=== PATIENT | male | born 1970 | race Caucasian/White ===

== ENCOUNTER → 2018-10-27 19:15 | Outpatient (ROUT) | payer OTHER, SELFPAY ==
[2018-10-27 19:55] LABS: Alanine Aminotransferase 33 IU/L (21-72); Albumin 4.6 g/dL (3.5-5.0); Albumin Globulin Ratio 1.5 (1.0-2.8); Alkaline Phosphatase 92 U/L (38-126); Aspartate Aminotransferase 17 IU/L (17-59); BUN Creatinine Ratio 17.1 (6-22); Basophils Absolute Auto 100 /uL (0-100); Bilirubin Total 0.6 mg/dL (0.2-1.3); Blood Urea Nitrogen 12 mg/dL (9-20); Calcium 9.7 mg/dL (8.4-10.2); Carbon Dioxide 23 mmol/L (22-32); Chloride 101 mmol/L (98-107); Cholesterol 201 mg/dL (140-199); Estimated Glomerular Filt Rate > 60.0 mL/min (>60); Glucose 221 mg/dL (70-100); HDL Cholesterol 29 mg/dL (40-60); HEMOLYSIS 17 (0-50); LDL Cholesterol Calculated 127 mg/dL (<100); Lymphocytes Absolute Auto 2800 /uL (1100-4500); Monocytes Absolute Auto 800 /uL (0-900); Potassium 4.8 mmol/L (3.4-5.1); Sodium 135 mmol/L (137-145); Total Protein 7.6 g/dL (6.3-8.2); Triglycerides 225 mg/dL (35-150)
[2018-10-27 20:12] LABS: Eosinophils Absolute Auto 500 /uL (0-450); Eosinophils Percent Auto 4.8 % (2-4); Hematocrit 58.2 % (41-53); Hemoglobin 19.9 g/dL (13.5-17.5); Lymphocytes Percent Auto 24.9 % (25-40); Mean Corpuscular HGB Conc 34.2 % (30-36); Mean Corpuscular Hemoglobin 32.7 PG (26-34); Mean Corpuscular Volume 95.4 fL (80-100); Monocytes Percent Auto 7.3 % (3-14); Neutrophils Absolute Auto 7000 /uL (1500-7000); Platelet Count 256 X10^3/uL (150-400); Red Cell Distribution Width 14.2 % (11.6-14.8); White Blood Cell Count 11.3 X10^3/uL (4.5-11.0)
[2018-10-27 20:27] LABS: Hemoglobin A1C% w Est Avg Glu 10.8 % (4.0-6.0)
[2018-10-27 20:37] LABS: Add Manual Diff / Slide Review SLIDE REVIEW
[2018-10-27 20:39] LABS: RBC Morphology Normal Morphology
== END ==
PROVIDERS: Visit Provider Nurse Practitioner Acute Care
DX: R73.01 Impaired fasting glucose (principal)
CPT/HCPCS: 80053; 80061; 83036; 85025

== ENCOUNTER 2023-04-21 07:25 | Emergency (ER) | payer BC, SELFPAY ==
[2023-04-21] VITALS (13 sets, daily range): BP systolic 134–192; BP diastolic 75–106; PULSE 100–108; RESP 16–26; TEMP 36.4; O2SAT 95–98; BMI 31.5
--- NOTE | 2023-04-21 07:29 | DI.RAD.S_ITS ---
PROCEDURE: XR CHEST 1V INDICATIONS: chest pain TECHNIQUE: One view of the chest was acquired. COMPARISON: [facility], CR, XR CHEST 1 VIEW, 01/25/2023, 14:55. FINDINGS: Surgical changes and devices: None. Lungs and pleura: Mild linear lateral left mid lung opacity, probably atelectatic. No other consolidation, effusion, or pneumothorax. Mediastinum: Heart size at the upper limits of normal. No central vascular congestion. Normal aortic contour. Bones and chest wall: No suspicious bony lesions. Overlying soft tissues appear unremarkable. IMPRESSION: 1. Left lateral mid lung atelectasis or trace fluid in the fissure. 2. Slight increase in heart size compared to the prior study. Dictated by: Yamini Davis M.D. on 04/21/2023 at 7:48 Approved by: Yamini Davis M.D. on 04/21/2023 at 7:49
[2023-04-21 07:48] LABS: Add Manual Diff / Slide Review NO; Basophils Absolute Auto 200 /uL (0-100); Eosinophils Absolute Auto 700 /uL (0-450); Eosinophils Percent Auto 6.5 % (2-4); Hematocrit 47.3 % (41-53); Hemoglobin 16.1 g/dL (13.5-17.5); Lymphocytes Absolute Auto 2400 /uL (1100-4500); Lymphocytes Percent Auto 21.7 % (25-40); Mean Corpuscular Hemoglobin 32.9 PG (26-34); Mean Corpuscular Volume 96.9 fL (80-100); Monocytes Absolute Auto 1000 /uL (0-900); Monocytes Percent Auto 8.9 % (3-14); Neutrophils Absolute Auto 6800 /uL (1500-7000); Neutrophils Percent Auto 60.9 % (50-75); Platelet Count 291 X10^3/uL (150-400); Red Blood Cell Count 4.88 X10^6/uL (4.5-5.9); White Blood Cell Count 11.2 X10^3/uL (4.5-11.0)
[2023-04-21 07:51] LABS: Prothrombin Time 11.3 SECONDS (10.1-12.7)
[2023-04-21 07:54] LABS: PTT Partial Thromboplastin Tim 33 SECONDS (26-36)
[2023-04-21 07:56] LABS: Alanine Aminotransferase 30 IU/L (<50); Albumin 4.6 g/dL (3.5-5.0); Albumin Globulin Ratio 1.4 (1.0-2.8); Alkaline Phosphatase 72 U/L (38-126); Aspartate Aminotransferase 29 IU/L (17-59); BUN Creatinine Ratio 16.7 (6-22); Bilirubin Total 0.5 mg/dL (0.2-1.3); Blood Urea Nitrogen 13 mg/dL (9-20); Calcium 9.4 mg/dL (8.4-10.2); Carbon Dioxide 25 mmol/L (22-32); Chloride 101 mmol/L (98-107); Creatine Kinase 111 U/L (55-170); Estimated Glomerular Filt Rate > 60 mL/min (>60); Globulin 3.4 g/dL (1.7-4.1); Glucose 161 mg/dL (70-100); Lipase 72 U/L (23-300); Magnesium 2.2 mg/dL (1.6-2.3); Potassium 4.5 mmol/L (3.4-5.1); Sodium 135 mmol/L (137-145)
[2023-04-21] MEDS: ASPIRIN 81 MG CHEW TAB 324 MG PO (07:59)
[2023-04-21 08:00] LABS: HEMOLYSIS 61 (0-50)
[2023-04-21 08:07] LABS: Troponin I 0.018 ng/mL (0.01-0.034)
--- NOTE | 2023-04-21 08:07 | ED_ITS ---
HPI - Chest Pain General Chief Complaint: Chest Pain Stated Complaint: pain all over chest and arm Time Seen by Provider: 04/21/23 07:49 Source: patient Mode of arrival: Ambulatory Limitations: no limitations Limitations: no limitations History of Present Illness HPI narrative: [age] year old male with history of diabetes type 2, dyslipidemia, possible CHF,, chronic tobacco and alcohol use. Patient presents with complaint of left- sided chest pain that wraps around from the epigastric area towards his back that has been present for about a week but fairly well-controlled that rapidly worsened last night into today. Patient states it has been constant all night without any resolution it is up in the same location without any movement. 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 States he took some ibuprofen last night which mildly improved it. Nothing else seems to make it better. Denies fevers, no cold cough or congestion. Does describe some shortness of breath and pleuritic chest pain. Patient denies any nausea or vomiting denies any issues with bowel movements normal stools no black or bloody stools. States pain does radiate down his left arm with some paresthesias but notes the paresthesias are not new. He is had chronic paresthesias in both upper extremities for many years. Patient states he did have furosemide recently added to his medication list his primary care but he may be developing some CHF. He is normally on metformin, Januvia, gabapentin, atorvastatin and aspirin 81 mg daily Lasix was added 2 weeks ago. He states remote history of back surgery, he had portion of his intestines removed as a child. No known drug allergies reported. Smokes 1-2 packs daily 4-6 beers nightly, no recreational drugs IV drugs or illicit. 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 Primary care is Dr. Awan in [facility]. Patient notes he is supposed to have a PFT test next week and possibly a cardiac MRI. Related Data Home Medications Medication Instructions Recorded Confirmed aspirin 81 mg tablet,delayed 81 mg PO DAILY 04/21/23 04/21/23 release (Adult Low Dose Aspirin) atorvastatin 40 mg tablet 20 mg PO DAILY 04/21/23 04/21/23 furosemide 40 mg tablet 40 mg PO DAILY 04/21/23 04/21/23 gabapentin 300 mg capsule 300 mg PO TID 04/21/23 04/21/23 metformin 500 mg tablet 500 mg PO BID 04/21/23 04/21/23 sitagliptin phosphate 25 mg tablet 25 mg PO DAILY 04/21/23 04/21/23 (Samantha) Previous Rx's Medication Instructions Recorded amoxicillin 875 mg-potassium 1 tab PO Q12H #14 tabs 04/21/23 clavulanate 125 mg tablet oxycodone 5 mg tablet 5 mg PO Q6H PRN pain #10 tabs 04/21/23 Allergies Allergy/AdvReac Type Severity Reaction Status Date / Time No Known Drug Allergies Allergy Verified 04/21/23 07:59 Review of Systems Review of Systems ROS Unobtainable: All systems reviewed & are unremarkable except as noted in HPI and below Patient History Social History Smoking Status: Current every day smoker Smoking Status: Current every day smoker alcohol intake frequency: 3 or more drinks per day Substance Use Type: does not use Exam Narrative Exam Narrative: GEN: Male, alert and oriented x 3, patient appears to be in [id number] distress. HEENT: Atraumatic, pupils are equal round reactive to light, extraocular movements are intact, nares are clear, there is no conjunctival pallor. Throat is clear without any exudates, erythema, tonsillar enlargement or uvular deviation HEART: Regular rate and rhythm without murmur, clicks, rubs. Pulses are equal in upper and lower extremities LUNGS:Lungs clear to auscultation, no wheezes, rales, crackles, chest moves symmetrically, no tachypnea, no accessory muscle use. ABD:bowel sounds normal, soft, non-tender, no guarding, rebound, rigidity, no masses noted, no hepatosplenomegaly :No CVA tenderness BACK: No cervical, thoracic or lumbar vertebral point tenderness. Patient has normal range of motion although patient appears uncomfortable with movement. Muscle strength is 5/5 in upper extremities, sensation intact in all 4 extremities. 2+ pulses in all 4 extremities. No obvious rash or skin changes. Patient is noted to be quite uncomfortable with light palpation across the lateral ribs but isn't increased with deeper palpation over the ribs. MSCL: Non-tender, no muscle atrophy, muscles strength 5/5 upper and lower extremities, full range of motion. NEURO:CN 2-12 intact, sensation normal SKIN: No rash or skin changes over the torso but patient does have some slightly hyperkeratotic skin with small red areas of excoriation over his anterior abdomen but is nontender in this area not over the area it is currently affected by pain. Patient states this has been present for several months. Initial Vital Signs Initial Vital Signs: Vital Signs Pulse Rate 107 H 04/21/23 07:29 Blood Pressure 178/106 H 04/21/23 07:29 Pulse Oximetry 98 04/21/23 07:29 Course Orders Ordered: ED Orders 04/21/23 09:33 Trop I [Troponin I] Stat Discontinued Medications Aspirin (Aspirin 81 Mg Chew Tab) 324 mg PO NOW ONE Stop: 04/21/23 07:30 Last Admin: 04/21/23 07:59 Dose: 324 mg Documented By: ROBYN Ketorolac Tromethamine (Ketorolac 30 Mg/Ml Vial) 15 mg IV NOW ONE Stop: 04/21/23 08:31 Last Admin: 04/21/23 08:36 Dose: 15 mg Documented By: ROBYN Vital Signs Vital signs: Vital Signs - 8 hr 04/21/23 07:29 04/21/23 07:29 04/21/23 07:30 Temperature Pulse Rate 107 H 108 H Respiratory Rate Blood Pressure 178/106 H Pulse Oximetry 98 98 Oxygen Delivery Method 04/21/23 07:37 04/21/23 07:37 04/21/23 07:38 Temperature 97.5 F L Pulse Rate 102 H 108 H Respiratory Rate 16 18 Blood Pressure 147/84 H 178/106 H Pulse Oximetry 98 98 Oxygen Delivery Method Room Air 04/21/23 08:00 04/21/23 08:00 04/21/23 08:15 Temperature Pulse Rate 101 H Respiratory Rate 20 Blood Pressure 136/84 134/83 Pulse Oximetry 98 Oxygen Delivery Method 04/21/23 08:15 04/21/23 08:30 04/21/23 08:30 Temperature Pulse Rate 101 H 100 H Respiratory Rate 16 19 Blood Pressure 134/80 Pulse Oximetry 96 97 Oxygen Delivery Method 04/21/23 08:52 04/21/23 08:52 04/21/23 08:56 Temperature Pulse Rate 101 H 100 H Respiratory Rate 17 19 Blood Pressure 138/82 Pulse Oximetry 96 96 Oxygen Delivery Method 04/21/23 08:56 04/21/23 09:00 04/21/23 09:00 Temperature Pulse Rate 101 H Respiratory Rate 19 Blood Pressure 192/85 H 192/84 H Pulse Oximetry 96 Oxygen Delivery Method 04/21/23 09:16 04/21/23 09:16 Temperature Pulse Rate 102 H Respiratory Rate 21 Blood Pressure 136/75 Pulse Oximetry 97 Oxygen Delivery Method MDM - Chest Pain Lab Data 04/21/23 07:37 04/21/23 07:37 Labs: Lab Results 04/21/23 04/21/23 Range/Units 07:37 09:33 WBC 11.2 H (4.5-11.0) X10^3/uL RBC 4.88 (4.5-5.9) X10^6/uL Hgb 16.1 (13.5-17.5) g/dL Hct 47.3 (41-53) % MCV 96.9 (80-100) fL MCH 32.9 (26-34) PG MCHC 34.0 (30-36) % RDW 14.0 (11.6-14.8) % Plt Count 291 (150-400) X10^3/uL Neut % (Auto) 60.9 (50-75) % Lymph % (Auto) 21.7 L (25-40) % [place] % (Auto) 8.9 (3-14) % Eos % (Auto) 6.5 H (2-4) % Baso % (Auto) 2.0 (0-2) % Neut # (Auto) 6800 (3784-7585) /uL Lymph # (Auto) 2400 (6805-5028) /uL [place] # (Auto) 1000 H (0-900) /uL Eos # (Auto) 700 H (0-450) /uL Baso # (Auto) 200 H (0-100) /uL PT 11.3 (10.1-12.7) SECONDS INR 1.0 (0.9-1.3) APTT 33 (26-36) SECONDS Sodium 135 L (137-145) mmol/L Potassium 4.5 (3.4-5.1) mmol/L Chloride 101 (98-107) mmol/L Carbon Dioxide 25 (22-32) mmol/L BUN 13 (9-20) mg/dL Creatinine 0.78 (0.66-1.25) mg/dL Estimated GFR > 60 (>60) mL/min BUN/Creatinine Ratio 16.7 (6-22) Glucose 161 H (70-100) mg/dL Calcium 9.4 (8.4-10.2) mg/dL Magnesium 2.2 (1.6-2.3) mg/dL Total Bilirubin 0.5 (0.2-1.3) mg/dL AST 29 (17-59) IU/L ALT 30 (<50) IU/L Alkaline Phosphatase 72 (38-126) U/L Total Creatine Kinase 111 (55-170) U/L Troponin I 0.018 0.021 (0.01-0.034) ng/mL NT-Pro-B Natriuret Pep 1140 H (<125) pg/mL Total Protein 8.0 (6.3-8.2) g/dL Albumin 4.6 (3.5-5.0) g/dL Globulin 3.4 (1.7-4.1) g/dL Albumin/Globulin Ratio 1.4 (1.0-2.8) Lipase 72 (23-300) U/L Imaging Data Chest x-ray: Radiologist's Impression: [address] [address] XRay Report Signed Patient: Dimas Dang MR#: [id number] : 1970 Acct:[id number] Age/Sex: 52 / M Date of Service: 04/21/23 Loc: ED Accession Number: [id number] Procedure: XR chest 1V Ordering Provider: Selene Ayala D.O. PROCEDURE: XR CHEST 1V INDICATIONS: chest pain TECHNIQUE: One view of the chest was acquired. COMPARISON: [facility], , XR CHEST 1 VIEW, 01/25/2023, 14:55. FINDINGS: Surgical changes and devices: None. Lungs and pleura: Mild linear lateral left mid lung opacity, probably atelectatic. No other consolidation, effusion, or pneumothorax. Mediastinum: Heart size at the upper limits of normal. No central vascular congestion. Normal aortic contour. Bones and chest wall: No suspicious bony lesions. Overlying soft tissues appear unremarkable. IMPRESSION: 1. Left lateral mid lung atelectasis or trace fluid in the fissure. 2. Slight increase in heart size compared to the prior study. Dictated by: Yamini Davis M.D. on 04/21/2023 at 7:48 Approved by: Yamini Davis M.D. on 04/21/2023 at 7:49 ECG Data Attestation: I personally reviewed and interpreted this ECG as follows: Prior ECG tracings: not available for review Interpretation: Sinus tachycardia rate of 105 NM 138 QRS of [address]TC [address] No acute ST elevation or depression noted. No priors for comparison. EKG 2. Shows sinus tach rate of 101 NM 136 QRS of 96 QTC 490. No acute ST elevation or depression is noted. No dynamic ST changes. MDM Narrative Medical decision making narrative: 52-year-old male presents with complaint of chest pain that has been present for the last week radiates around laterally to the back the thoracic area and does have pain down his left arm. Patient also notes he is had chronic paresthesias which are not new. Patient is slightly tachycardic, hypertensive. Has been told he has blockages in his legs, patient notes he was recently started on Lasix he is diabetes, dyslipidemia on gabapentin daily and an aspirin. Patient was quite tender to light touch over the skin raising shingles is a possibility but has no rash consistent with that currently. Patient's workup thus far shows white count of 11.2 normal CBC with platelets. INR and PTT show no acute changes. X1 35 normal electrolytes otherwise glucose of 161 normal renal function LFTs lipase. Troponin is 0.018 with a BNP of 1140. With 12+ hours of chest pain and a week of symptoms overall seems less likely to be cardiac in nature troponin was not repeated. 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 This shows no pulmonary emboli, some free flex consistent with early CHF. Some ground- glass opacities and fluid in the right consistent with chest x-ray more on right than left. Troponin was repeated is 0.0-1 and repeat EKG shows no acute ST changes. Patient received Toradol pain,, he had some improvement he states not resolved but tolerable. Reviewed all patient's findings. Discussed will cover with antibiotics although was more on the right than the left side. Did note that he is quite tender to light touch so to watch out for shingles and rashes that would change his treatment/management. Discussed need for follow-up, patient does have follow up next week for some additional workup which I discussed with the patient. Reviewed all of his findings on his CT today he expressed understanding and reviewed return precautions. Discharge Plan Departure Patient Disposition: Home Clinical Impression: Chest pain, Pneumonia Instructions: DI for Pneumonia -- Adult Activity Restrictions/Additional Instructions: Follow up with your physician for recheck. Your imaging does show some ground-glass opacities but more on the right than the left lung this could reflect pneumonia so please take antibiotics until completed. There is potential for early shingles so watch for a rash stays just on the left side with small blisters in the area of pain if you see this you should return or follow up with primary care for antivirals. I do recommend you continue your follow-up workup. Take pain medication as prescribed. Take antibiotics until completed. You may take Tylenol up to a 1000 mg every 6 hours and/or ibuprofen up to 600 mg every 6 hours or similar medication. If in adequate for pain you can take 1-2 tablets of narcotic pain medication every 6 hours as needed. This medication can make you sleepy do not drive, perform hazardous activities or make any major decisions while taking it. This medication will make you constipated please take a stool softener once to twice daily until stools are soft and regular. Prescription sent to [facility] in [place]. Please return for fevers rapidly worsening pain lightheadedness or passing out, new or worsening chest abdominal back or flank pain, persistent vomiting, difficulty with bowel movements, loss of bowel or bladder control, new rash or skin changes or other new or concerning changes. Prescriptions: New amoxicillin-pot clavulanate 875-125 mg tablet 1 tab PO Q12H Qty: 14 0RF oxycodone 5 mg tablet 5 mg PO Q6H PRN (Reason: pain) Qty: 10 0RF No Action metformin 500 mg Tablet 500 mg PO BID Rx Instructions: Take 1 tablet by mouth twice daily aspirin [Adult Low Dose Aspirin] 81 mg Tablet,Delayed Release (Dr/Ec) 81 mg PO DAILY atorvastatin 40 mg tablet 20 mg PO DAILY Januvia 25 mg tablet 25 mg PO DAILY furosemide 40 mg tablet 40 mg PO DAILY Rx Instructions: Take 1 tablet by mouth once daily gabapentin 300 mg capsule 300 mg PO TID Stand Alone Forms: Patient Portal/API
[2023-04-21 08:19] LABS: NT-proBNP (BNP-Adult 18+) 1140 pg/mL (<125)
--- NOTE | 2023-04-21 08:29 | DI.CT.S_ITS ---
PROCEDURE: CT ANGIO CHEST PE PROTOCOL INDICATIONS: left chest pain TECHNIQUE: After the administration of intravenous contrast, 2 mm thick sections acquired from the pulmonary apices to the posterior costophrenic angles. 3-dimensional maximum intensity projection (MIP) coronal and sagittal reformats were then acquired through the thorax. For radiation dose reduction, the following was used: automated exposure control, adjustment of mA and/or kV according to patient size. COMPARISON: [facility], CR, XR CHEST 1V, 04/21/2023, 7:36. [facility], US, US ABDOMEN LIMITED, 10/08/2022, 7:57. FINDINGS: Image quality: Excellent. Pulmonary arteries: Pulmonary arteries are normal in size, and demonstrate no intraluminal filling defects to suggest central pulmonary embolism. Lungs and pleura: Mild consolidation can be seen in the right middle lobe and the lingula, which of the appearance of atelectasis. There is a mild degree ground-glass opacity seen. No pleural effusions or pneumothorax. Central and peripheral airways are patent. Mediastinum: Moderate to prominent coronary artery calcification is seen. Heart size is mildly to moderately enlarged, without pericardial effusion. No mediastinal or hilar adenopathy. Thoracic aorta is normal in caliber and enhancement. Esophagus is normal in caliber, without hiatal hernia. Bones and chest wall: No suspicious bony lesions. Ribs and thoracic spine appear intact throughout. Thyroid gland demonstrates no significant abnormality. No axillary or supraclavicular adenopathy. Abdomen: There is mild reflux of contrast seen into the inferior vena cava and into the hepatic veins. The visualized portions of the upper abdominal structures are otherwise unremarkable for imaging technique. IMPRESSION: Negative for pulmonary embolism. Mild cardiomegaly with mild ground-glass opacity and a small amount of reflux of contrast seen into the inferior vena cava and into the hepatic veins. Please correlate with potential early CHF. There are consolidative changes seen within the right middle lobe and the lingula. The appearance is most consistent with atelectasis. Additional findings: Moderate to prominent coronary artery calcification Dictated by: Keith Ovalle M.D. on 04/21/2023 at 8:12 Approved by: Keith Ovalle M.D. on 04/21/2023 at 8:15
[2023-04-21] MEDS: KETOROLAC 30 MG/ML VIAL 15 MG IV (08:36)
[2023-04-21 10:02] LABS: Troponin I 0.021 ng/mL (0.01-0.034)
== END 2023-04-21 10:21 | disposition home or self-care (01) ==
PROVIDERS: Emergency Provider Emergency Medicine
DX: J18.9 Pneumonia, unspecified organism (principal); R07.9 Chest pain, unspecified
CPT/HCPCS: 36415; 71045; 71275; 80053; 82550; 83690; 83735; 83880; 84484; 85025; 85610; 85730; 93005; 96374; 99284; 99285; J1885; Q9967